=== PATIENT | female | born 1960 | race Caucasian/White ===

== ENCOUNTER 2017-03-30 12:28 | Emergency (ER) | payer MEDICAID ==
[2017-03-30 12:35] VITALS: BP 113/69; PULSE 78; RESP 16; TEMP 99; O2SAT 97
--- NOTE | 2017-03-30 13:18 | CPEKG ---
Heart Rate: 72 RR Interval: 833 P-R Interval: 168 QRSD Interval: 96 QT Interval: 408 QTC Interval: 447 P Coila: 65 QRS Coila: 59 T Wave Coila: 42 EKG Severity - BORDERLINE ECG - EKG Impression: SINUS RHYTHM EKG Impression: PROBABLE LEFT ATRIAL ABNORMALITY Electronically Signed By: Medhat Car 30-Mar-2017 13:46:16
[2017-03-30] MEDS ORDERED: MECLIZINE HCL 25 MG TAB PO ONE (13:42)
--- NOTE | 2017-03-30 13:54 | EDPHY ---
H & P Stated Complaint: dizziness, gen abd pain x 3 days, fever, fatigue-worse today Time Seen by Provider: 03/30/17 13:30 HPI/ROS: CHIEF COMPLAINT: Dizziness, fluttering and stomach HISTORY OF PRESENT ILLNESS: The patient is a 56-year-old female with a history of bipolar who comes to the emergency department complaining of fluttering in her stomach as well as a constant head pressure for the last day and half. The patient states that her vertigo gets worse with head movement or sitting up. No recent fevers or infections. No chest pain or shortness of breath. No vomiting. The patient's son is here and states that he thinks that this is mostly emotional. He is concerned about her psychiatrically. She has a history of bipolar disease and her father about 2 weeks ago. Her son states that she has been very emotional since that time. She denies any suicidality or homicidality. She denies any recent drug or alcohol use. REVIEW OF SYSTEMS: Constitutional: denies: chills, fever, recent illness, recent injury EENTM: denies: blurred vision, double vision, nose congestion Respiratory: denies: cough, shortness of breath Cardiac: denies: chest pain, irregular heart rate, lightheadedness, palpitations Gastrointestinal/Abdominal: denies: abdominal pain, diarrhea, nausea, vomiting, blood streaked stools Genitourinary: denies: dysuria, frequency, hematuria, pain Musculoskeletal: denies: joint pain, muscle pain Skin: denies: lesions, rash, jaundice, bruising Neurological: See HPI Hematologic/Lymphatic: denies: blood clots, easy bleeding, easy bruising Immunologic/allergic: denies: HIV/AIDS, transplant EXAM: GENERAL: Well-appearing, well-nourished and in no acute distress. HEAD: Atraumatic, normocephalic. EYES: Nystagmus with fast component to the right, Pupils equal round and reactive to light, extraocular movements intact, sclera anicteric, conjunctiva are normal. ENT: TMs normal, nares patent, oropharynx clear without exudates. Moist mucous membranes. NECK: Normal range of motion, supple without lymphadenopathy or JVD. LUNGS: Breath sounds clear to auscultation bilaterally and equal. No wheezes rales or rhonchi. HEART: Regular rate and rhythm without murmurs, rubs or gallops. ABDOMEN: Soft, nontender, normoactive bowel sounds. No guarding, no rebound. No masses appreciated. BACK: No CVA tenderness, no spinal tenderness, step-offs or deformities EXTREMITIES: Normal range of motion, no pitting or edema. No clubbing or cyanosis. NEUROLOGICAL: Cranial nerves II through XII grossly intact. Normal confrontational testing and tracking with head movement. Normal speech, normal gait. 5/5 strength, normal movement in all extremities, normal sensation PSYCH: Normal mood, normal affect. SKIN: Warm, dry, normal turgor, no visible rashes or lesions. Source: Patient Exam Limitations: No limitations - Personal History Current Tetanus/Diphtheria Vaccine: Unsure Current Tetanus Diphtheria and Acellular Pertussis (TDAP): Unsure - Medical/Surgical History Hx Asthma: No Hx Chronic Respiratory Disease: No Hx Diabetes: No Hx Cardiac Disease: No Hx Renal Disease: No Hx Cirrhosis: No Hx Alcoholism: No Hx HIV/AIDS: No Hx Splenectomy or Spleen Trauma: No Other PMH: cervical ca. htn - Family History Significant Family History: No pertinent family hx - Social History Smoking Status: Never smoked Alcohol Use: Sober Drug Use: None Constitutional: Initial Vital Signs Temperature (C) 37.2 C 03/30/17 12:32 Heart Rate 78 03/30/17 12:32 Respiratory Rate 16 03/30/17 12:32 Blood Pressure 113/69 03/30/17 12:32 O2 Sat (%) 97 03/30/17 12:32 O2 Delivery Mode Room Air Allergies/Adverse Reactions: No Known Allergies Allergy (Unverified 03/30/17 12:31) Home Medications: Medication Instructions Recorded Atenolol 03/30/17 Meclizine HCl [Meclizine HCl 25 mg 25 mg PO BID PRN #14 tab 03/30/17 (RX,OTC)] Medical Decision Making - Diagnostics EKG Interpretation: An EKG obtained and was read and documented in trace view. Please see trace view for full reading and report. Sinus rhythm, no acute ischemic changes Imaging Results: Imaging Impressions Head CT 03/30/17 13:46 Impression: Negative. No acute intracranial hemorrhage, mass or evidence of ischemia. Findings discussed with Emergency Department physician, Medhat Car, 2016, 14:28. Imaging: Discussed imaging studies w/ forging die finisher Radiologist ED Course/Re-evaluation: Head CT ordered in this adult patient for trauma for the following indication: Headache, vertigo 2:30 p.m. the patient feels much better after meclizine. She is asking to go home. She continues to refuse blood work. She is asking for prescription. We discussed indications for returning. I spoke with her son about mental health component. I will refer [facility]. She is not acutely psychotic or suicidal or homicidal. She does not warrant M1 hold. Differential Diagnosis: Partial list of the Differential diagnosis considered include but were not limited to; vertigo, arrhythmia, anxiety, bipolar and although unlikely based on the history and physical exam, I also considered infection, CVA, hemorrhage, tumor, electrolyte abnormality. I discussed these differential diagnoses and the plan with the patient as well as the usual and expected course. The patient understands that the diagnosis is provisional and that in medicine we are not always correct and that further workup is often warranted. Usual and customary warnings were given. All of the patient's questions were answered. The patient was instructed to return to the emergency department should the symptoms at all worsen or return, otherwise to followup with the physician as we discussed. - Data Points Medications Given: Discontinued Medications Meclizine HCl (Meclizine Hcl) 25 mg PO ONCE ONE Stop: 03/30/17 13:43 Last Admin: 03/30/17 13:46 Dose: 25 mg Departure - Departure Disposition: Home, Routine, Self-Care Clinical Impression: Vertigo Condition: Fair Instructions: Vertigo (ED) Referrals: SHARA ERIC [Other] - As per Instructions Prescriptions: Meclizine HCl [Meclizine HCl 25 mg (RX,OTC)] 25 mg PO BID PRN #14 tab PRN Reason: Vertigo
== END 2017-03-30 14:45 | disposition home or self-care (01) ==
DX: R42 Dizziness and giddiness (principal); I10 Essential (primary) hypertension; Z85.41 Personal history of malignant neoplasm of cervix uteri